=== PATIENT | female | born 1945 | race Caucasian/White ===

== ENCOUNTER 2018-10-07 10:33 | Emergency (ER) | payer MEDICARE, OTHER ==
--- NOTE | 2018-10-07 11:10 | EDM.PDOC ---
ED HPI GENERAL MEDICAL PROBLEM - General Chief Complaint: Chest Pain Stated Complaint: HEAVYNESS IN CHEST [id number] Time Seen by Provider: 10/07/18 11:05 Source of Information: Reports: Patient History Limitations: Reports: No Limitations - History of Present Illness INITIAL COMMENTS - FREE TEXT/NARRATIVE: patient has emergency department today from home with concerns of heaviness to her chest. Since early afternoon yesterday the patient has had some heaviness to her chest that extends up to her neck. She's never had any symptoms like this in the past. She has no pain in her chest. No palpitations weakness dizziness lightheadedness. No fever no chills. No cough or congestion. She has had no trauma to her chest. She has no abdominal pain nausea or vomiting. No hematuria dysuria or urinary frequency. No black or tarry stools. She does not smoke. She has no history of coagulopathies or PEs or DVTs.the only other complaint is that she just feels very wiped out and tired and has very little energy.she has had some cramping sensation in her epigastric region that she relates to stomach cramps. Left Chest Pain Score (Numeric/FACES): 5 - Related Data Allergies Allergy/AdvReac Type Severity Reaction Status Date / Time Sulfa (Sulfonamide Allergy Itching Verified 10/07/18 10:56 Antibiotics) Home Meds: Home Meds DULoxetine [Cymbalta] 20 mg PO BEDTIME 10/07/18 [History] LORazepam [Ativan] 0.5 mg PO BEDTIME 10/07/18 [History] Omeprazole 20 mg PO DAILY #30 tab.rap. 10/07/18 [Rx] Sucralfate [Carafate] 1 gm PO QIDACANDBED #120 tablet 10/07/18 [Rx] Past Medical History HEENT History: Reports: None Cardiovascular History: Reports: None Respiratory History: Reports: None Gastrointestinal History: Reports: None Genitourinary History: Reports: None DESIGN EDITOR History: Reports: None Musculoskeletal History: Reports: Arthritis Neurological History: Reports: None Psychiatric History: Reports: None Endocrine/Metabolic History: Reports: None Hematologic History: Reports: None Immunologic History: Reports: None Oncologic (Cancer) History: Reports: None Dermatologic History: Reports: None - Infectious Disease History Infectious Disease History: Reports: None - Past Surgical History Head Surgeries/Procedures: Reports: None Social & Family History - Family History Family Medical History: Noncontributory - Tobacco Use Smoking Status *Q: Never Smoker Second Hand Smoke Exposure: No - Caffeine Use Caffeine Use: Reports: Coffee - Recreational Drug Use Recreational Drug Use: No ED ROS GENERAL - Review of Systems Review Of Systems: ROS reveals no pertinent complaints other than HPI. ED EXAM, GENERAL - Physical Exam Exam: See Below Exam Limited By: No Limitations General Appearance: Alert, WD/WN Ears: Normal External Exam, Hearing Grossly Normal Nose: Normal Inspection, Normal Mucosa Throat/Mouth: Normal Inspection, Normal Lips, Normal Oropharynx Head: Atraumatic, Normocephalic Neck: Normal Inspection, Supple Respiratory/Chest: No Respiratory Distress, Lungs Clear, Normal Breath Sounds, No Accessory Muscle Use, Other (no increased breathing) Cardiovascular: Normal Peripheral Pulses, Regular Rate, Rhythm GI/Abdominal: Normal Bowel Sounds, Soft, Non-Tender, No Distention Back Exam: Normal Inspection Extremities: Normal Inspection, Normal Range of Motion, No Pedal Edema, Normal Capillary Refill Neurological: Alert, Oriented, CN II-XII Intact, Normal Cognition, No Motor/ Sensory Deficits Psychiatric: Normal Affect, Normal Mood Skin Exam: Warm, Dry, Intact, Normal Color, No Rash EKG INTERPRETATION EKG Date: 10/07/18 Time: 10:59 Rhythm: NSR Rate (Beats/Min): 77 [place]: Normal P-Wave: Present QRS: Normal ST-T: Normal QT: Normal Comparison: No Change Course - Vital Signs Last Recorded V/S: Last Vital Signs Temp 36.9 C 10/07/18 11:00 Pulse 87 10/07/18 11:27 Resp 18 10/07/18 11:27 BP 138/75 10/07/18 11:42 Pulse Ox 96 10/07/18 11:27 - Orders/Labs/Meds Orders: Active Orders 24 hr Category Date Time Status EKG Documentation Completion [RC] URGENT Care 10/07/18 11:03 Active Labs: Laboratory Tests 10/07/18 10/07/18 10/07/18 Range/Units 10:34 10:34 10:34 WBC 7.1 (5.0-10.0) 10^3/uL RBC 4.12 L (4.2-5.4) 10^6/uL Hgb 12.0 (12.0-16.0) g/dL Hct 38.5 (37.0-47.0) % MCV 93.4 (80-100) fL MCH 29.1 (27.0-34.0) pg MCHC 31.2 L (33.0-35.0) g/dL RDW Not Reportable RDW Coeff of Garrick Not Reportable Plt Count 326 (150-450) 10^3/uL MPV Not Reportable Neutrophils % (Manual) 58 (42-75) % Lymphocytes % (Manual) 30 (20-50) % Monocytes % (Manual) 8 (2-8) % Eosinophils % (Manual) 4 H (1-3) % Basophilic Stippling 1+ slight Stomatocytes 2+ moderate D-Dimer, Quantitative < 100 (0-400) ng/mL Sodium 136 (135-145) mmol/L Potassium 3.8 (3.6-5.0) mmol/L Chloride 100 L (101-111) mmol/L Carbon Dioxide 26.0 (21.0-31.0) mmol/L Anion Gap 13.8 BUN 12 (7-18) mg/dL Creatinine 0.7 (0.6-1.3) mg/dL Est Cr Clr Drug Dosing 52.95 mL/min Estimated GFR (MDRD) > 60 BUN/Creatinine Ratio 17.14 Glucose 119 H (74-105) mg/dL Calcium 9.2 (8.4-10.2) mg/dl Total Bilirubin 0.6 (0.2-1.0) mg/dL AST 24 (10-42) IU/L ALT 21 (10-60) IU/L Alkaline Phosphatase 49 (42-121) IU/L Troponin I < 0.02 (0.00-0.02) ng/ml Total Protein 7.3 (6.7-8.2) g/dl Albumin 3.9 (3.2-5.5) g/dl Globulin 3.4 Albumin/Globulin Ratio 1.15 Meds: Medications Discontinued Medications Generic Name Dose Route Start Last Admin Trade Name Freq PRN Reason Stop Dose Admin Al Hydroxide/Mg Hydroxide 30 ml 10/07/18 11:47 10/07/18 11:53 Gi Cocktail PO 10/07/18 11:48 30 ml ONETIME ONE Administration Aspirin 324 mg 10/07/18 11:15 10/07/18 11:23 Aspirin PO 10/07/18 11:16 324 mg ONETIME ONE Administration Nitroglycerin 0.4 mg 10/07/18 11:15 10/07/18 11:42 Nitrostat SL 10/07/18 11:16 0.4 mg ONETIME ONE Administration - Radiology Interpretation Free Text/Narrative:: No acute cardiopulmonary abnormality per radiology. - Re-Assessments/Exams Free Text/Narrative Re-Assessment/Exam: 10/07/18 11:52 324 aspirin orally 3 SL nitro with no change in pain. EKG and troponin normal. Try GI Cocktail. With complete resolution of her symptomatology. 10/07/18 13:39 Patient is resting quite comfortably without any heaviness or chest or upper neck since the administration of the GI cocktail. She does have a history of GERD and relates that over the past couple of days she has struggled with some epigastric type cramping pain. She's never had a right upper quadrant pain or diarrhea. Her abdomen is soft nontender nondistended without tenderness or Parry sign. Only complains of being very fatigued and tired in no heaviness or shortness of breath at this time. I will treat her at this time to cover to see if her symptomology is related to her GERD. If she is not improving over the next couple of days I would consider seeing her primary care for a type of stress test to see if this is angina. She is comfortable with this plan and her questions are answered I will start her on some Carafate as well as increase her omeprazole. Departure - Departure Time of Disposition: 13:19 Disposition: Home, Self-Care 01 Clinical Impression: GERD (gastroesophageal reflux disease) Qualifiers: Esophagitis presence: esophagitis presence not specified Qualified Code(s): K21.9 - Gastro-esophageal reflux disease without esophagitis Fatigue Qualifiers: Fatigue type: unspecified Qualified Code(s): R53.83 - Other fatigue Prescriptions: Omeprazole 20 mg PO DAILY #30 tab.rap. Sucralfate [Carafate] 1 gm PO QIDACANDBED #120 tablet Instructions: Fatigue, Gastroesophageal Reflux Disease, Adult, [id number] Referrals: Philomena Meza NP [Primary Care Provider] - Forms: ED Department Discharge Additional Instructions: Continue with a daily Aspirin at 81mg a day. Increase your omeprazole to twice a day for the next 2 weeks then back to one a day. Start carafate, 1 tablet 1/2 hour before meals and bedtime. RX given to the patient. For acute episode of GERD OTC Maalox or Mylanta. If these symptoms persists see PCP in the next few days and consider a stress test. Return to the ED if new or worsening symptoms. Follow up with primary care provider in the next 4-6 days if not improving sooner if worse. - My Orders Last 24 Hours: My Active Orders 10/07/18 11:03 EKG Documentation Completion [RC] URGENT - Assessment/Plan Last 24 Hours: My Active Orders 10/07/18 11:03 EKG Documentation Completion [RC] URGENT Assessment:: Chest heaviness, GERD vs possible angina work up today negative pain resolved with GI cocktail. GERD Plan: Continue with a daily Aspirin at 81mg a day. Increase your omeprazole to twice a day for the next 2 weeks then back to one a day. Start carafate, 1 tablet 1/2 hour before meals and bedtime. RX given to the patient. For acute episode of GERD OTC Maalox or Mylanta. If these symptoms persists see PCP in the next few days and consider a stress test. Return to the ED if new or worsening symptoms. Follow up with primary care provider in the next 4-6 days if not improving sooner if worse.
[2018-10-07] MEDS ORDERED: Aspirin 81 MG Tab.Chew PO ONE (11:15)
[2018-10-07 11:24] LABS: ANION GAP 13.8; CHLORIDE,CL 100 mmol/L (101-111); SODIUM,NA 136 mmol/L (135-145)
[2018-10-07] MEDS: Nitroglycerin 0.4 MG Tab.SL SL ONE ×3 (11:24→11:42)
[2018-10-07] MEDS ORDERED: GI Cocktail Oral Solution 30 ML PO ONE (11:47)
--- NOTE | 2018-10-07 12:05 | CR ---
Clinical history: 73-year-old female with shortness of breath and chest pain. Interpretation: Multilevel thoracic disc disease and arthritic changes of the spine. Otherwise Negative exam. Normal cardiac silhouette without cephalization of vascular flow, signs of alveolar edema or dependent pleural effusion (external radiation monitor leads). No lung mass, hilar lymphadenopathy or focal lobar pneumonia. No atelectasis/collapse. No pneumothorax or free subdiaphragmatic air. CONCLUSION: No acute cardiopulmonary abnormality.
== END 2018-10-07 13:30 | disposition home or self-care (01) ==
LOC: DL.ED 10:33
DX: K21.9 Gastro-esophageal reflux disease without esophagitis (principal); R53.83 Other fatigue; Z88.2 Allergy status to sulfonamides
CPT/HCPCS: 36415; 71046; 80053; 84484; 85007; 85027; 85379; 93005; 99285; A9270